=== PATIENT | male | born 1985 | race Two or more races ===

== ENCOUNTER 2019-06-19 11:01 | Emergency (ER) | payer MEDICAID, OTHER ==
[~2019-06-19] VITALS: Ht 195.6 cm; Wt 154.2 kg
[2019-06-19] MEDS ORDERED: SODIUM CHLORIDE 0.9% 1,000 ML IVB ONE (11:07)
[2019-06-19] MEDS ORDERED: PROCHLORPERAZINE EDISYLATE 5 MG/ML 2ML VIAL IV ONE (11:15)
[2019-06-19] MEDS ORDERED: PANTOPRAZOLE 40 MG/10 ML VIAL INJ IV ONE (11:15)
[2019-06-19 11:42] LABS: Basophils # (auto) 0.1 10 ^3/uL (0-0.2); Basophils % (auto) 0.7 % (0.0-2.0); Eosinophils # (auto) 0.1 10 ^3/uL (0-0.8); Eosinophils % (auto) 0.7 % (0.0-7.0); Hematocrit 42.5 % (41.0-53.0); Lymphocytes # (auto) 2.6 10 ^3/uL (0.4-5.4); Lymphocytes % (auto) 18.5 % (10.0-50.0); Mean Corpuscular Hemoglobin 29.7 pg (28.0-32.0); Mean Corpuscular Hgb Conc. 35.4 g/dL (32.0-36.0); Monocytes # (auto) 1.3 10 ^3/uL (0-1.3); Neutrophils # (auto) 9.9 10 ^3/uL (1.6-8.6); Neutrophils % (auto) 71.1 % (37.0-80.0); Platelet Count (auto) 324 10^3/uL (140-450); Red Blood Cells 5.06 10^6/uL (4.5-5.90); Red Cell Distribution Width 12.9 % (11.8-14.3); White Blood Cell 13.9 10^3/uL (4.4-10.8)
[2019-06-19 11:52] LABS: Albumin 4.2 g/dL (3.4-5.0); Calcium 8.8 mg/dL (8.5-10.1); Potassium 3.4 mmol/L (3.5-5.1)
[2019-06-19 11:55] LABS: BUN/Creatinine Ratio 22.3; Bilirubin, Total 1.4 mg/dL (0.2-1.0); Total Protein 8.4 g/dL (6.4-8.2)
[2019-06-19 12:45] LABS: Amphetamine Screen, Urine POSITIVE (NEGATIVE); Barbiturate Scree,Urine NEGATIVE (NEGATIVE); Benzodiazephine Screen, Urine NEGATIVE (NEGATIVE); Cannabinoid Screen, Urine POSITIVE (NEGATIVE); Cocaine Screen, Urine NEGATIVE (NEGATIVE); Phencyclidine Screen, Urine NEGATIVE (NEGATIVE)
[2019-06-19 12:54] LABS: Opiate Scree,Urine NEGATIVE (NEGATIVE)
[2019-06-19 13:44] VITALS: BP 131/71
== END 2019-06-19 13:58 | disposition home or self-care (01) ==
LOC: ER 11:01
DX: F15.10 Other stimulant abuse, uncomplicated (principal); F41.8 Other specified anxiety disorders; K59.00 Constipation, unspecified; F12.10 Cannabis abuse, uncomplicated; F17.210 Nicotine dependence, cigarettes, uncomplicated; Z88.2 Allergy status to sulfonamides
CPT/HCPCS: 36415; 80053; 80307; 83690; 85025; 96374; 96375; 99284; C9113; J0780; J7030

== ENCOUNTER 2020-02-28 20:50 | Emergency (ER) | payer MEDICAID, OTHER ==
[~2020-02-28] VITALS: Ht 195.6 cm; Wt 154.2 kg
[2020-02-28 20:57] VITALS: BP 140/83
== END 2020-02-28 23:47 | disposition left against medical advice (07) ==
LOC: ER 20:50
DX: J02.9 Acute pharyngitis, unspecified (principal); Z53.21 Procedure and treatment not carried out due to patient leaving prior to being seen by health care provider

== ENCOUNTER 2021-01-31 12:22 | Emergency (ER) | payer MEDICAID ==
[~2021-01-31] VITALS: Ht 195.6 cm; Wt 158.8 kg
[2021-01-31 12:34] VITALS: BP 135/89
== END 2021-01-31 14:42 | disposition home or self-care (01) ==
LOC: ER 12:22
DX: H66.92 Otitis media, unspecified, left ear (principal); F17.210 Nicotine dependence, cigarettes, uncomplicated; Z88.2 Allergy status to sulfonamides